=== PATIENT | male | born 1935 | race Caucasian/White ===

== ENCOUNTER 2017-04-14 13:25 | Inpatient (IN) ==
[2017-04-14] MEDS ORDERED: SODIUM CHLORIDE 0.9% 500 ML IV STA ×2 (13:37→17:37)
[2017-04-14 14:09] LABS: Basophils % 0.2 % (0.0-0.8); Eosinophils % 0.2 % (0.00-10.9); Hematocrit 32.6 VOL% (42.0-52.0); Hemoglobin 10.6 GM/DL (14.0-18.0); Immature Granulocytes % 1.9 %; Immature Granulocytes Absolute 0.23 #; Lymphocytes # 0.9 10*3/uL (1.4-4.0); Lymphocytes % 7.7 % (21.2-54.2); Mean Corpuscular HGB Conc 32.5 GM/DL (32-36); Mean Corpuscular Hemoglobin 31 PG (27-34); Mean Corpuscular Volume 94.2 FL (87-102); Mean Platelet Volume 9.9 FL (9.6-12.0); Monocytes # 0.8 10*3/uL (0.11-0.8); Monocytes % 6.3 % (1.7-12.7); Neutrophils % 83.7 % (38.7-73.9); Platelet Count 147 T/CUMM (130-400); Red Blood Count 3.46 MC/CUMM (3.8-5.5); Red Cell Distribution Width 15.3 % (9.3-17.3)
[2017-04-14 14:16] LABS: PT Patient Result 10.7 SECS
[2017-04-14 14:34] LABS: Albumin 3.1 G/DL (3.4-5.0); Bilirubin,Total 0.7 MG/DL (0.2-1.0); Calcium 7.7 MG/DL (8.5-10.1); Osmolality,Calculated 305.4 MOS/KG (273-304); Potassium 3.4 MMOL/L (3.5-5.1); Total Protein 5.7 G/DL (6.4-8.3)
[2017-04-14 14:37] LABS: Troponin I Only 0.088 NG/ML (0.00-0.045)
[2017-04-14] MEDS ORDERED: SODIUM CHLORIDE 0.9% 1,000 ML IV STA ×2 (15:44→23:04)
[2017-04-14 16:32] LABS: Apearance,Urine CLEAR (Clear); Bilirubin,Urine Negative (Negative); Blood, Urine Negative (Negative); Glucose,Urine (UA) Negative (Negative); Ketones,Urine Negative (Negative); Mucus,Urine Occasional /LPF (Occasional); Nitrite,Urine Negative (Negative); Protein,Urine Negative; RBC,Urine 1 /HPF (0-4); Squamous Epithelial Cell,Urine Occasional /HPF (0-10); Urine Color Yellow (Yellow); Urine Urobilinogen < 2.0 EU/DL (0.2-1.0); WBC,Urine 1 /HPF (0-6)
[2017-04-14 17:30] LABS: Lactic Acid 2.5 MMOL/L (0.4-2.0)
[2017-04-14] MEDS ORDERED: ONDANSETRON 4 MG/2 ML VIAL IV PRN (17:43)
[2017-04-14] MEDS ORDERED: POTASSIUM CHLORIDE 20 MEQ TABLET PO PRN (17:46)
[2017-04-14] MEDS ORDERED: SODIUM CHLORIDE 0.9% 500 ML IV ONE (17:46)
[2017-04-14] MEDS ORDERED: metroNIDAZOLE 500 MG/100 ML PREMIX IV ONE (18:36)
[2017-04-14] MEDS ORDERED: ceFAZolin 1,000 MG VIAL ONE (18:36)
[2017-04-14] MEDS ORDERED: POTASSIUM CHLORIDE RIDER 10 MEQ in PREMIX 1 EACH IV PRN (19:09)
[2017-04-14 19:36] LABS: Troponin I Only 0.138 NG/ML (0.00-0.045)
[2017-04-14] MEDS: metroNIDAZOLE INJ 500 MG in PREMIX 1 EACH IV SCH (19:41)
[2017-04-14] MEDS: ceFAZolin 1,000 MG in SYRINGE 1 EACH IV SCH (19:45)
[2017-04-14] MEDS ORDERED: POTASSIUM CHLORIDE RIDER 200 ML IV ONE (21:05)
[2017-04-14] MEDS ORDERED: NOREPINEPHRINE 4 MG/4 ML VIAL IV ONE (23:15)
[2017-04-14] MEDS: NOREPINEPHRINE 8 MG in SODIUM CHLORIDE 0.9% 242 ML IV SCH (23:25)
[2017-04-14] MEDS ORDERED: POTASSIUM CHLORIDE RIDER 20 MEQ in PREMIX 1 EACH IV PRN (23:44)
[2017-04-15] MEDS ORDERED: BUMETANIDE 1 MG/4 ML VIAL IV ONE ×2 (01:23→04:40)
[2017-04-15] MEDS ORDERED: ALBUTEROL/IPRATROPIUM 3 ML NEB RESP TX PRN (01:23)
[2017-04-15] MEDS ORDERED: BUMETANIDE 1 MG/4 ML VIAL ONE ×2 (01:55→04:57)
[2017-04-15] MEDS ORDERED: POTASSIUM CHLORIDE RIDER 100 ML IV ONE (01:59)
[2017-04-15] MEDS ORDERED: metroNIDAZOLE 500 MG/100 ML PREMIX IV ONE ×2 (03:48→06:01)
[2017-04-15] MEDS: PIPERACILLIN/TAZOBACTAM 3,375 MG in SODIUM CHLORIDE 0.9% 100 ML IV SCH ×2 (03:52→04:17)
[2017-04-15] MEDS: metroNIDAZOLE INJ 500 MG in PREMIX 1 EACH IV SCH ×4 (04:07→17:53)
[2017-04-15] MEDS ORDERED: PIPERACILLIN/TAZOBACTAM 3,375 MG VIAL IV ONE (04:13)
[2017-04-15] MEDS ORDERED: SODIUM CHLORIDE 0.9% 100 ML IV ONE (04:13)
[2017-04-15 04:46] LABS: Basophils # 0.1 10*3/uL (0.0-0.2); Basophils % 0.4 % (0.0-0.8); Eosinophils # 0.2 10*3/uL (0.0-0.87); Eosinophils % 1.4 % (0.00-10.9); Hematocrit 34.5 VOL% (42.0-52.0); Immature Granulocytes % 1.8 %; Immature Granulocytes Absolute 0.29 #; Lymphocytes # 1.3 10*3/uL (1.4-4.0); Lymphocytes % 8.3 % (21.2-54.2); Mean Corpuscular HGB Conc 31.9 GM/DL (32-36); Mean Corpuscular Hemoglobin 31 PG (27-34); Mean Corpuscular Volume 96.9 FL (87-102); Mean Platelet Volume 10.1 FL (9.6-12.0); Monocytes % 6.5 % (1.7-12.7); Neutrophils # 12.9 10*3/uL (1.4-7.4); Neutrophils % 81.6 % (38.7-73.9); Platelet Count 176 T/CUMM (130-400); Red Blood Count 3.56 MC/CUMM (3.8-5.5); Red Cell Distribution Width 15.7 % (9.3-17.3); White Blood Count 15.8 T/CUMM (4-12)
[2017-04-15 04:59] LABS: INR 1.1; PT Patient Result 11.4 SECS; Partial Thromboplastin Time 27.1 SECS (0-40)
[2017-04-15 05:26] LABS: Calcium 6.7 MG/DL (8.5-10.1); Osmolality,Calculated 315.4 MOS/KG (273-304); Potassium 3.3 MMOL/L (3.5-5.1)
[2017-04-15] MEDS: ceFAZolin 1,000 MG in SYRINGE 1 EACH IV SCH ×2 (06:31→17:52)
[2017-04-15 08:00] LABS: HIV Antigen/Antibody Result Nonreactive (Nonreactive); Hepatitis B Surface Ag Quant < 0.10 Index; Hepatitis B Surface Ag Result Negative (Negative); Hepatitis C Virus Ab Quant 0.03 Index; Hepatitis C Virus Ab Result Negative (Negative)
[2017-04-15] MEDS: ALBUTEROL/IPRATROPIUM 3 ML NEB RESP TX SCH ×5 (08:28→23:39)
[2017-04-15] MEDS ORDERED: metOLazone 5 MG TABLET PO PRN (08:46)
[2017-04-15] MEDS ORDERED: FAMOTIDINE 20 MG TABLET PO SCH (09:00)
[2017-04-15] MEDS: FUROSEMIDE 40 MG/4 ML VIAL IV SCH ×2 (10:02→16:32)
[2017-04-15] MEDS: ALLOPURINOL 100 MG TABLET PO SCH (10:02)
[2017-04-15] MEDS: clonazePAM 0.5 MG TABLET PO SCH ×2 (10:02→21:16)
[2017-04-15] MEDS: CLOPIDOGREL 75 MG TABLET PO SCH (10:03)
[2017-04-15] MEDS: FAMOTIDINE 20 MG TABLET PO SCH (10:03)
[2017-04-15] MEDS: FINASTERIDE 5 MG TABLET PO SCH (10:03)
[2017-04-15] MEDS: CARVEDILOL 6.25 MG TABLET PO SCH ×2 (10:03→21:16)
[2017-04-15] MEDS: ASPIRIN EC 325 MG TABLET PO SCH (10:04)
[2017-04-15] MEDS: PANTOPRAZOLE 40 MG TABLET PO SCH (10:04)
[2017-04-15] MEDS: POTASSIUM CHLORIDE 10 MEQ TABLET PO SCH (10:06)
[2017-04-15] MEDS: NOREPINEPHRINE 8 MG in SODIUM CHLORIDE 0.9% 242 ML IV SCH (15:43)
[2017-04-15] MEDS ORDERED: ATORVASTATIN 20 MG TABLET PO SCH (21:00)
[2017-04-16] MEDS: metroNIDAZOLE INJ 500 MG in PREMIX 1 EACH IV SCH ×4 (00:27→18:17)
[2017-04-16] MEDS: ALBUTEROL/IPRATROPIUM 3 ML NEB RESP TX SCH ×5 (04:14→20:03)
[2017-04-16] MEDS: NOREPINEPHRINE 8 MG in SODIUM CHLORIDE 0.9% 242 ML IV SCH (05:18)
[2017-04-16] MEDS: ceFAZolin 1,000 MG in SYRINGE 1 EACH IV SCH ×2 (05:19→18:18)
[2017-04-16 06:21] LABS: Basophils % 0.2 % (0.0-0.8); Eosinophils # 0.1 10*3/uL (0.0-0.87); Eosinophils % 0.5 % (0.00-10.9); Hematocrit 29.2 VOL% (42.0-52.0); Hemoglobin 8.9 GM/DL (14.0-18.0); Immature Granulocytes % 2.2 %; Immature Granulocytes Absolute 0.27 #; Lymphocytes # 0.8 10*3/uL (1.4-4.0); Lymphocytes % 6.9 % (21.2-54.2); Mean Corpuscular HGB Conc 30.5 GM/DL (32-36); Mean Corpuscular Hemoglobin 30 PG (27-34); Mean Corpuscular Volume 99.7 FL (87-102); Mean Platelet Volume 9.7 FL (9.6-12.0); Monocytes # 0.7 10*3/uL (0.11-0.8); Neutrophils # 10.2 10*3/uL (1.4-7.4); Neutrophils % 84.2 % (38.7-73.9); Platelet Count 114 T/CUMM (130-400); Red Blood Count 2.93 MC/CUMM (3.8-5.5); Red Cell Distribution Width 15.8 % (9.3-17.3); White Blood Count 12.1 T/CUMM (4-12)
[2017-04-16 06:53] LABS: Calcium 5.9 MG/DL (8.5-10.1); Osmolality,Calculated 312.6 MOS/KG (273-304)
[2017-04-16 07:43] LABS: Band Neutrophils 1 % (0-10); Giant Platelets Few; Hypochromasia 1+; Lymphocytes 6 % (20-55); Ovalocytes Slight; Platelet Estimate Decreased; Segmented Neutrophils 87 % (50-85); Total Cells Counted 100
[2017-04-16] MEDS ORDERED: CALCIUM GLUCONATE 1,000 MG in SODIUM CHLORIDE 0.9% 100 ML IV ONE (08:04)
[2017-04-16] MEDS ORDERED: SODIUM CHLOR 0.45% KCL 20 MEQ 20 MEQ/1,000 ML BAG IV SCH (08:30)
[2017-04-16] MEDS ORDERED: DOBUTamine 500 MG/250 ML PREMIX IV ONE (08:43)
[2017-04-16] MEDS: FUROSEMIDE 40 MG/4 ML VIAL IV SCH (09:37)
[2017-04-16] MEDS: clonazePAM 0.5 MG TABLET PO SCH (09:58)
[2017-04-16] MEDS: PANTOPRAZOLE 40 MG TABLET PO SCH (09:59)
[2017-04-16] MEDS: CARVEDILOL 6.25 MG TABLET PO SCH (09:59)
[2017-04-16] MEDS: ALLOPURINOL 100 MG TABLET PO SCH (09:59)
[2017-04-16] MEDS: FINASTERIDE 5 MG TABLET PO SCH (09:59)
[2017-04-16] MEDS ORDERED: DOBUTamine 500 MG/250 ML PREMIX IV SCH (10:00)
[2017-04-16] MEDS: CLOPIDOGREL 75 MG TABLET PO SCH (10:00)
[2017-04-16] MEDS: ASPIRIN EC 325 MG TABLET PO SCH (10:00)
[2017-04-16] MEDS: POTASSIUM CHLORIDE 10 MEQ TABLET PO SCH (10:06)
[2017-04-16] MEDS: FAMOTIDINE 20 MG TABLET PO SCH (10:06)
[2017-04-16] MEDS ORDERED: ZINC OXIDE PASTE 113 GM TUBE TOP PRN (10:40)
[2017-04-16] MEDS: INSULIN REGULAR 100 UNIT/ML SUBCUT SCH ×2 (12:47→16:57)
[2017-04-16] MEDS ORDERED: ASCORBIC ACID 500 MG TABLET PO SCH (13:30)
[2017-04-16] MEDS ORDERED: POTASSIUM CHLORIDE RIDER 20 MEQ in PREMIX 1 EACH IV SCH (14:00)
[2017-04-16] MEDS ORDERED: POTASSIUM CHLORIDE INJ 20 MEQ in SODIUM CHLORIDE 0.45% 250 ML IV ONE (14:00)
[2017-04-16 14:06] LABS: Magnesium 1.6 MG/DL (1.8-2.4)
[2017-04-16] MEDS ORDERED: MAGNESIUM SULF RIDER 2 GM in PREMIX 1 EACH IV ONE (14:11)
[2017-04-16] MEDS ORDERED: MAGNESIUM SULF RIDER 50 ML IV ONE (14:14)
[2017-04-16] MEDS ORDERED: FUROSEMIDE 40 MG/4 ML VIAL ONE (14:15)
[2017-04-16] MEDS ORDERED: FUROSEMIDE 40 MG/4 ML VIAL IV ONE (14:23)
[2017-04-16] MEDS ORDERED: POTASSIUM CHLORIDE 20 MEQ/15 ML UDCUP PO ONE (14:30)
[2017-04-16] MEDS ORDERED: CALCIUM GLUCONATE 2,000 MG in SODIUM CHLORIDE 0.9% 100 ML IV ONE (14:30)
[2017-04-16] MEDS: MORPHINE 10 MG/1 ML VIAL IV PRN ×2 (18:59→19:36)
[2017-04-16 19:04] VITALS: BP 85/64
== END 2017-04-16 20:15 | disposition expired | DRG 388 ==
LOC: EDBD → EDUNIT# → N.ED 13:25 → SUATTDRO 17:41 → N.EDINP 17:41 → N.5E 21:41 → N.EDINP 04-15 03:16 → N.ICU 04-15 05:52
PROVIDERS: ADMIT Hospitalist; ATTEND Pediatrics